=== PATIENT | female | born 1995 | race Caucasian/White ===

== ENCOUNTER → 2016-09-17 | Outpatient (CLI) | payer BC, OTHER ==
--- NOTE | 2016-09-17 11:41 | Diagnostic Imaging Report ---
EXAMINATION: Left breast ultrasound. INDICATION: Fullness in the upper outer quadrant of the left breast. FINDINGS: The upper outer quadrant of the left breast was scanned with no underlying abnormality seen. IMPRESSION: Negative study. A mammogram was not performed at this time due to the young age of the patient. If symptoms persist or are clinically concerning, then a reevaluation exam and getting a mammogram would be recommended. ACR BI-RADS Category 1: Negative. Result letter will be mailed to the patient. Note: At least 10% of breast cancer is not imaged by mammography. Dictated by: Dictated on workstation # [id number]
== END ==
LOC: RAD 09:17
PROVIDERS: ATTEND Family Medicine
DX: N64.89 Other specified disorders of breast (principal)
CPT/HCPCS: 76642

== ENCOUNTER → 2018-08-17 | Outpatient (CLI) | payer BC, OTHER ==
--- NOTE | 2018-08-17 17:02 | Diagnostic Imaging Report ---
PROCEDURE: CT abdomen and pelvis without contrast. TECHNIQUE: Multiple contiguous axial images were obtained through the abdomen and pelvis without the use of intravenous contrast. Auto Exposure Controls were utilized during the CT exam to meet ALARA standards for radiation dose reduction. INDICATION: Right lower quadrant pain with nausea, vomiting and diarrhea. COMPARISON: No prior studies are available for comparison. FINDINGS: The lung bases are clear. The liver and gallbladder are unremarkable. No biliary ductal dilatation is seen. The pancreas and spleen are unremarkable. No adrenal mass is detected. No renal calculi or hydronephrosis is detected. The aorta is non-aneurysmal. Small and large bowel loops are normal in caliber and without evidence of obstruction. The appendix is visualized in the right lower quadrant. The appendix has a normal appearance. No periappendiceal inflammation is seen to suggest acute appendicitis. No free fluid or fluid collection is identified. The bladder and uterus are unremarkable. There are small lymph nodes in the right lower quadrant which can be seen with mesenteric adenitis. IMPRESSION: 1. No CT evidence of acute appendicitis. 2. No evidence of urinary tract calculi or obstruction. 3. Mildly prominent lymph nodes in the right lower quadrant which can be seen with mesenteric adenitis. Results were discussed with Dr. Alli Rios prior to this dictation. Dictated by: Dictated on workstation # [id number]
== END ==
LOC: RAD 16:23
PROVIDERS: ATTEND Nurse Practitioner
DX: J01.90 Acute sinusitis, unspecified (principal); K90.41 Non-celiac gluten sensitivity; H92.01 Otalgia, right ear; R10.31 Right lower quadrant pain; R09.81 Nasal congestion
CPT/HCPCS: 74176

== ENCOUNTER → 2018-08-18 | Outpatient (CLI) | payer BC, OTHER ==
--- NOTE | 2018-08-18 16:29 | Diagnostic Imaging Report ---
PROCEDURE: US Gallbladder. TECHNIQUE: Multiple Real-time grayscale images were obtained over the right upper quadrant in various projections. INDICATION: Nausea and abdominal pain. FINDINGS: The liver parenchyma is homogeneous with normal echotexture. The gallbladder is clear with no stones or wall thickening. The portal vein is patent with hepatopetal flow. The hepatic veins are patent. The gallbladder is clear with no stones or wall thickening. The common duct is not dilated. The pancreas is obscured by bowel gas. The right kidney measures 9 cm in length and appears normal. There is no ascites. IMPRESSION: Negative gallbladder sonogram. Dictated by: Dictated on workstation # [id number]
== END ==
LOC: RAD 15:12
PROVIDERS: ATTEND Surgery
DX: R11.0 Nausea (principal); R10.816 Epigastric abdominal tenderness
CPT/HCPCS: 76705

== ENCOUNTER → 2018-08-20 | Outpatient (CLI) | payer BC, OTHER ==
[~2018-08-20] MED LIST: ACHD5005 PO; CATHETER FLUSH 10 ML SYR IV PRN; DOCU-143 PO
--- NOTE | 2018-08-20 09:35 | Diagnostic Imaging Report ---
Clinical indication: Patient with nausea. Comparison: Gallbladder ultrasound dated 08/18/2018. Procedure: The patient was administered 5.46 millicuries of technetium 99m Choletec. After 60 minutes of the images, one can of Ensure was drink followed by another 60 minutes of imaging. A nuclear medicine hepatobiliary scan with ejection fraction was performed. Findings: There is prompt uptake and excretion of radiotracer by the liver. Activity is visible in the gallbladder by 35 minutes and the small bowel by 65 minutes. Ejection fraction of the gallbladder is calculated at 14% (normal >33%). Impression: Abnormal hepatobiliary scan with low gallbladder ejection fraction of 14%. These findings may be seen with chronic cholecystitis or gallbladder dysmotility. Dictated by: Dictated on workstation # [id number]
== END ==
LOC: CARD 06:33
PROVIDERS: ATTEND Surgery
DX: R11.0 Nausea (principal); R10.816 Epigastric abdominal tenderness
CPT/HCPCS: 78227

== ENCOUNTER 2018-08-23 11:50 | Outpatient (CLI) | payer BC, OTHER ==
[~2018-08-23] VITALS: Ht 167.6 cm; Wt 77.1 kg
[2018-08-24] MEDS ORDERED: DOCU-143 PO (13:12)
[2018-08-24] MEDS ORDERED: ACHD5005 PO (13:12)
== END 2018-08-23 14:06 | disposition home or self-care (01) ==
LOC: PREOP 11:50
PROVIDERS: ATTEND Surgery
DX: Z01.818 Encounter for other preprocedural examination (principal)

== ENCOUNTER 2018-08-24 10:22 | Day surgery (SDC) | payer BC, OTHER ==
[~2018-08-24] VITALS: Ht 167.6 cm; Wt 77.1 kg
[2018-08-24] VITALS (11 sets, daily range): BP systolic 110–128; BP diastolic 74–84
[2018-08-24] MEDS: LACTATED RINGERS 1,000 ML IV PRN ×2 (09:55→12:45)
--- OUTSIDE RECORDS SUMMARY | 2018-08-24 10:25 | XMS REPORT | Clinical Summary ---
Author Author [facility] Organization [facility] Address Unknown Phone Unavailable Care Team Providers Care Test [facility] Administrator Name Role Phone PCP Unavailable Allergies No Known Allergies Current Medications Prescription Sig. Disp. Refills Start End Date Status Date norgestimate-ethinyl Take 1 tablet by mouth Active estradiol (ORTHO daily. TRI-CYCLEN) 0.18/0.215/0.25 mg-35 mcg (28) tablet fluticasone (FLONASE) 50 Use 2 sprays in each 1 Bottle 0 11/02/19 Active mcg/actuation nasal nostril daily. 16 sprayIndications: Seasonal allergies Active Problems No known active problems Social History Tobacco Use Types Packs/Day Years Used Date Never Smoker Alcohol Use Drinks/Week oz/Week Comments No 0 Standard 0.0 drinks or equivalent Sex Assigned at Date Recorded Not on file Last Filed Vital Signs Vital Sign Reading Time Taken Blood Pressure 132/90 11/02/2015 5:22 PM CDT Pulse 90 11/02/2015 5:22 PM CDT Temperature 36.9 C (98.4 F) 11/02/2015 5:22 PM CDT Respiratory Rate 12 11/02/2015 5:22 PM CDT Oxygen Saturation 99% 11/02/2015 5:22 PM CDT Inhaled Oxygen - - Concentration Weight - - Height - - Body Mass Index - - Plan of Treatment Health Maintenance Due Date Last Done Comments Td # 1994 HPV Vaccine (1 - Female 2005 3-dose series) Cervical Cancer Screening 08/14/2015 via Pap Smear Influenza Vaccine (Season 02/25/2019 Ended) Results Not on filefrom Last 3 Months
--- OUTSIDE RECORDS SUMMARY | 2018-08-24 10:26 | XMS REPORT | Continuity of Care Document ---
Author Organization Unknown Address Unknown Allergies Active Description Code Type Severity Reaction Onset Reported/Identified Relationship to Patient Clinical Status Yes No Known Drug Allergies [id number] Drug Allergy Unknown N/A 08/20/2018 Medications There is no data. Problems Date Dx Coded Attending Type Code Diagnosis Diagnosed By 06/25/2015 COSENS DO, EVY L Ot R10.11 06/25/2015 COSENS DO, EVY L Ot R10.13 02/28/2016 COSENS DO, EVY L Ot R10.11 RIGHT UPPER QUADRANT PAIN 02/28/2016 COSENS DO, EVY L Ot R10.13 EPIGASTRIC PAIN 09/18/2016 GIANNDER DO, SUSAN S Ot N64.89 OTHER SPECIFIED DISORDERS OF BREAST 09/26/2016 ORENDER DO, SUSAN S Ot N64.89 OTHER SPECIFIED DISORDERS OF BREAST 09/26/2016 ORENDER DO, SUSAN S Ot N64.89 OTHER SPECIFIED DISORDERS OF BREAST 09/30/2016 ORENDER DO, SUSAN S Ot N64.89 OTHER SPECIFIED DISORDERS OF BREAST 08/17/2018 ORENDER DO, SUSAN S Ot N64.89 OTHER SPECIFIED DISORDERS OF BREAST 08/18/2018 NWAGWU, ISIDORE O [employer] Ot H92.01 OTALGIA, RIGHT EAR 08/18/2018 NWAGWU, ISIDORE O [employer] Ot J01.90 ACUTE SINUSITIS, UNSPECIFIED 08/18/2018 NWAGWU, ISIDORE O [employer] Ot K90.41 NON-CELIAC GLUTEN SENSITIVITY 08/18/2018 NWAGWU, ISIDORE O [employer] Ot R09.81 NASAL CONGESTION 08/18/2018 NWAGWU, ISIDORE O [employer] Ot R10.31 RIGHT LOWER QUADRANT PAIN 08/18/2018 NWAGWU, ISIDORE O [employer] Ot H92.01 OTALGIA, RIGHT EAR 08/18/2018 NWAGWU, ISIDORE O [employer] Ot J01.90 ACUTE SINUSITIS, UNSPECIFIED 08/18/2018 NWAGWU, ISIDORE O [employer] Ot K90.41 NON-CELIAC GLUTEN SENSITIVITY 08/18/2018 NWAGWU, ISIDORE O [employer] Ot R09.81 NASAL CONGESTION 08/18/2018 NWAGWU, ISIDORE O [employer] Ot R10.31 RIGHT LOWER QUADRANT PAIN 08/18/2018 NWAGWU, ISIDORE O [employer] Ot H92.01 OTALGIA, RIGHT EAR 08/18/2018 NWAGWU, ISIDORE O [employer] Ot J01.90 ACUTE SINUSITIS, UNSPECIFIED 08/18/2018 NWAGWU, ISIDORE O [employer] Ot K90.41 NON-CELIAC GLUTEN SENSITIVITY 08/18/2018 NWAGWU, ISIDORE O [employer] Ot R09.81 NASAL CONGESTION 08/18/2018 NWAGWU, ISIDORE O [employer] Ot R10.31 RIGHT LOWER QUADRANT PAIN 08/18/2018 NWAGWU, ISIDORE O [employer] Ot H92.01 OTALGIA, RIGHT EAR 08/18/2018 NWAGWU, ISIDORE O [employer] Ot J01.90 ACUTE SINUSITIS, UNSPECIFIED 08/18/2018 NWAGWU, ISIDORE O [employer] Ot K90.41 NON-CELIAC GLUTEN SENSITIVITY 08/18/2018 NWAGWU, ISIDORE O [employer] Ot R09.81 NASAL CONGESTION 08/18/2018 NWAGWU, ISIDORE O [employer] Ot R10.31 RIGHT LOWER QUADRANT PAIN Procedures There is no data. Results There is no data. Encounters ACCT No. Visit Date/Time Discharge Status Pt. Type Provider Facility Loc./Unit Complaint [id number] 08/20/2018 06:33:00 08/20/2018 23:59:59 [facility] Outpatient BOYLE LISANDRO BERGERON Via [facility] CARD NAUSEA, EPIGASTRIC ABDOMINAL TENDERNESS [id number] 08/18/2018 15:12:00 08/18/2018 23:59:[address] [facility] Outpatient BOYLE LISANDRO BERGERON [facility] RAD NAUSEA [id number] 08/17/2018 16:23:00 08/17/2018 23:59:59 [facility] Outpatient ADOLPH RHODES APRN [facility] RAD RLQ PAIN [id number] 09/17/2016 09:17:00 09/17/2016 23:59:59 [facility] Outpatient SUSAN TORRES DO [facility] RAD LT UPPER OUTER QUAD FULLNESS [id number] 06/01/2015 07:55:00 06/01/2015 23:59:59 [facility] Outpatient EVY CEJA DO [facility] RAD ABDOMINAL PAIN [id number] 03/26/2013 14:22:00 03/26/2013 23:59:59 [facility] Outpatient
[2018-08-24] MEDS ORDERED: LIDOCAINE PF 2% 5 ML (XYLOCAINE) VIAL ONE (10:51)
[2018-08-24] MEDS ORDERED: proPOfol 200 MG/20 ML (DIPRIVAN) VIAL IV ONE (10:51)
[2018-08-24] MEDS ORDERED: fentaNYL INJECTION 100 MCG/2 ML AMP ONE ×3 (10:51→13:28)
[2018-08-24] MEDS ORDERED: ROCURONIUM 10 MG/ML 5 ML SYRINGE IV ONE (10:51)
[2018-08-24] MEDS ORDERED: MIDAZOLAM 2 MG/2 ML (VERSED) VIAL ONE (10:52)
--- NOTE | 2018-08-24 10:57 | Progress Note-Pre Operative ---
Pre-Operative Progress Note H&P Reviewed The H&P was reviewed, patient examined and no changes noted. Date Seen by Provider: Aug 24, 2018 Time Seen by Provider: 10:56 Date H&P Reviewed: Aug 24, 2018 Time H&P Reviewed: 10:56 Pre-Operative Diagnosis: ruq abd pain, biliary dyskinesia LISANDRO BOYLE DO Aug 24, 2018 10:57
[2018-08-24] MEDS ORDERED: ceFAZolin INJECTION 1,000 MG in WATER (STERILE) FOR INJECTION 10 ML IV ONE (11:00)
[2018-08-24] MEDS ORDERED: LIDOCAINE 1% INJ 20 ML 20 ML VIAL ONE (11:33)
[2018-08-24] MEDS ORDERED: BUP/EPI 0.5% 1:200,000 (SENSORCAINE) 30 ML VIAL ONE (11:33)
[2018-08-24] MEDS ORDERED: IOPAMIDOL 61% 30 ML (ISOVUE 300) VIAL IV ONE (11:33)
[2018-08-24] MEDS ORDERED: ONDANSETRON 4 MG/2 ML (SDV) Z0FRAN ONE (12:18)
[2018-08-24] MEDS ORDERED: DEXAMETHASONE 10 MG/ML (DECADRON) 1 ML VIAL ONE (12:18)
[2018-08-24] MEDS ORDERED: SEVOFLURANE (ULTANE) 15 ML INHAL SOLN ONE ×6 (12:26→13:21)
[2018-08-24] MEDS ORDERED: GLYCOPYRROLATE 0.2 MG/ML (ROBINUL) 2 ML VIAL ONE (13:00)
[2018-08-24] MEDS ORDERED: NEOSTIGMINE 1 MG/ML 5 ML SYRINGE ONE (13:00)
--- NOTE | 2018-08-24 13:11 | Progress Note-Post Operative ---
Post-Operative Progess Note Surgeon (s)/Aviation Operations Specialist (s) Surgeon LISANDRO BOYLE DO Aviation Operations Specialist: Dr. Valdez Pre-Operative Diagnosis ruq abd pain, biliary dyskinesia Post-Operative Diagnosis same Procedure & Operative Findings Date of Procedure 08/24/18 Procedure Performed/Findings lap herman attempted ioc Anesthesia Type gen Estimated Blood Loss Estimated blood loss (mL): min Specimens/Packing Specimens Removed gallbladder LISANDRO BOYLE DO Aug 24, 2018 13:11
[2018-08-24] MEDS ORDERED: DOCU-143 PO (13:12)
[2018-08-24] MEDS ORDERED: ACHD5005 PO (13:12)
--- NOTE | 2018-08-24 13:14 | Discharge Inst-Simple/Standard ---
Discharge Inst-Standard Discharge Medications New, Converted or Re-Newed RX: RX on Chart Patient Instructions/Follow Up Plan of Care/Instructions/FU: 2 weeks Gabriel Activity as Tolerated: No Discharge Diet: Regular Diet Other Inst to Patient Follow up Appt: Make appointment for 2 weeks. Instructions: No lifting greater than 10 pounds. No strenuous activity. May shower in 24 hours, no tub bath or soaking. Use incentive spirometer at home as directed. No Smoking Skin/Wound Care: You have special glue over incisions it will fall off on its own. Symptoms to Report: Appetite Changes, Extremity Discoloration, Numbness/Tingling, Swelling Increased , Bleeding Excessive, Eyesight Changes, Pain Increased, Urine Color Change, Constipation(Persistent), Fever over 101 degree F, Pain/Pressure in chest, Urinating Difficulty, Cough Up/Vomit Blood, Heart Beat Irreg/Pounding, Pain/ Pressure in jaw, Vaginal Bleeding Increase, Cramps in feet or legs, Lightheadedness, Pain/Pressure in shoulder, Diarrhea(Persistent), Memory Changes Suddenly, Questions/Concerns, Weight gain consecutive days, Dizziness/ Fainting, Nausea/Vomiting, Shortness of Breath, Weight gain over 2 pounds. If eyes or skin turn yellow notify physician. If questions or concerns contact your physician Or seek help at emergency department. LISANDRO BOYLE DO Aug 24, 2018 13:14
[2018-08-24] MEDS ORDERED: KETOROLAC 30 MG/ML VIAL ONE (13:28)
[2018-08-24] MEDS ORDERED: ONDANSETRON 4 MG/2 ML (SDV) Z0FRAN IVP PRN (13:30)
[2018-08-24] MEDS ORDERED: PROMETHAZINE INJ 25 MG/ML (PHENERGAN) AMP IVP ONE (13:30)
[2018-08-24] MEDS ORDERED: MEPERIDINE (DEMEROL) INJ 50 MG/ML IVP ONE (13:30)
[2018-08-24] MEDS ORDERED: KETOROLAC 30 MG/ML VIAL IVP ONE (13:30)
[2018-08-24] MEDS ORDERED: fentaNYL INJECTION 100 MCG/2 ML AMP IVP ONE (13:45)
--- NOTE | 2018-08-24 14:03 | Anesthesia-General Post-Op ---
General Patient Condition Mental Status/LOC: Same as Preop Cardiovascular: Satisfactory Nausea/Vomiting: Absent Respiratory: Satisfactory Pain: Controlled Complications: Absent Post Op Complications Complications None Follow Up Care/Instructions Patient Instructions None needed. Anesthesia/Patient Condition Patient Condition Patient is doing well, no complaints, stable vital signs, no apparent adverse anesthesia problems. No complications reported per nursing. ALYSSIA HOPPER CRNA Aug 24, 2018 14:03
[2018-08-24] MEDS ORDERED: HYDROcodone/APAP 5 MG/325 MG (LORTAB) TAB ONE (14:54)
[2018-08-24] MEDS ORDERED: HYDROcodone/APAP 5 MG/325 MG (LORTAB) TAB PO ONE (15:00)
--- NOTE | 2018-08-24 15:01 | NUR ---
HAS HAD CRACKERS AND PO FLUIDS. LORTAB 5/325 MG, ONE TAB, GIVEN PO FOR C/O ABD SURGICAL SITE PAIN RATED 5.
--- NOTE | 2018-08-24 15:45 | NUR ---
RESTING QUIETLY. STATES PAIN LEVEL IS DECREASING, RATES 3.
--- NOTE | 2018-08-24 16:25 | NUR ---
PAIN LEVEL RATED 2-3. UP IN ROOM TO DRESS FOR DISMISSAL, TOLERATED WELL. SURGICAL SKIN ADHESIVE REMAINS INTACT TO X4 LAP ABD SURGICAL SITES.
--- NOTE | 2018-08-24 22:27 | OPERATIVE REPORT ---
DATE OF SERVICE: 08/24/2018 PREOPERATIVE DIAGNOSIS: Right upper quadrant abdominal pain, biliary dyskinesia. POSTOPERATIVE DIAGNOSIS: Right upper quadrant abdominal pain, biliary dyskinesia. PROCEDURE: Laparoscopic cholecystectomy with attempted intraoperative cholangiogram. SURGEON: Lisandro Rios DO. NUCLEAR AUXILIARY OPERATOR: Dr. Valdez, assisted in retraction, dissection and closure. ANESTHESIA: General. ESTIMATED BLOOD LOSS: Minimal. COMPLICATIONS: None. INDICATIONS: The patient is a 23-year-old female with right upper quadrant abdominal pain, nausea and vomiting. She had workup consistent with biliary dyskinesia. She understands risks and benefits of procedure and wished to proceed with procedure. Consent was signed in the chart. DESCRIPTION OF PROCEDURE: The patient was taken to the operating suite, prepped and draped in sterile fashion. A timeout was performed. A midline incision was made just above the umbilicus through a 12 mm trocar site. Cautery was used to dissect down to the fascia, which was then scored, grasped, elevated. The abdomen was then entered. A balloon trocar was then inserted and pneumoperitoneum was achieved. Under direct visualization of the laparoscope, a 5 mm trocar was placed in the subxiphoid region and two 5 mm trocars were placed in the right upper quadrant. Gallbladder was grasped, elevated. There were adhesions attached to it and also edema around the gallbladder. The adhesions were then taken down. The cystic duct and cystic artery were then dissected around. Clips were placed on proximal and distal portion of the cystic artery and a clip was placed on the distal portion of the cystic duct. The cystic duct was very small. The duct was then partially transected. Arrow catheter was attempted to be inserted; however, it was very small. We were able to get the tip and tried to still perform cholangiogram by using a clip to hold it in place that was unable to be successful. Cholangiogram was then performed. Clips were placed on the proximal portion of the cystic duct, and the duct and the artery were then completely transected. Hook cautery used to dissect the gallbladder from gallbladder fossa achieving hemostasis. Once removed, it was placed in an Endobag and removed through 12 mm trocar site. The abdomen was then irrigated and suctioned with copious amounts of irrigation. Hemostasis was achieved. The abdomen was desufflated, the trocars were removed. The fascia was then closed in a [id number] fashion with an 0 Vicryl suture. The skin was then closed using 4-0 Monocryl in a subcuticular fashion. The area was then washed and dried and Skin Affix was placed over the incisions. The patient tolerated the procedure well without any complications. She was taken to recovery room in stable condition. Job ID: [id number] DocumentID: [id number] Dictated Date: 08/24/2018 13:17:20 Hide Paster Date: 08/24/2018 22:26:45 Dictated By: LISANDRO RIOS DO
== END 2018-08-24 16:25 | disposition home or self-care (01) ==
LOC: SDC 10:22
PROVIDERS: ATTEND Surgery
DX: K81.1 Chronic cholecystitis (principal)
CPT/HCPCS: 84703; 87081; 94664

== ENCOUNTER 2020-07-13 07:00 | Inpatient (IN) | payer BC, OTHER ==
[~2020-07-13] VITALS: Ht 170.2 cm; Wt 94.8 kg
[2020-07-13] VITALS (59 sets, daily range): BP systolic 91–169; BP diastolic 46–102
[~2020-07-13 07:00] MED LIST changes: -CATHETER FLUSH 10 ML SYR IV PRN
[2020-07-13] MEDS ORDERED: D5 LR IV SOLUTION 1,000 ML IV ONE (07:37)
[2020-07-13] MEDS ORDERED: OXYTOCIN PRE-MIX DRIP 500 ML IV ONE (07:37)
--- NOTE | 2020-07-13 07:43 | History & Physical ---
History and Physical Date Seen by Provider: Jul 13, 2020 Time Seen by Provider: 07:41 This patient is a 24-year-old 1 white female presenting now at 39 weeks gestation for labor induction. She has had no problems with this . She denies rupture membranes or bleeding. She only feels an occasional contraction at this point. Her GBS culture after 35 weeks gestation was negative. Allergies are to gluten Medications are vitamins Medical social and surgical history is all per the antepartum record HEENT exam is normal Neck is supple no lymphadenopathy no thyromegaly Abdomen is gravid soft nontender nondistended Extremities show no clubbing or cyanosis. There is no Homans' sign. Pelvic exam shows a cervix almost 2 cm dilated 70% effaced mid to slightly anterior very soft vertex presentation at -1 station Amniotomy was performed with release of small amount of clear fluid Assessment and plan 39-week gestation in an uncomplicated admitted now for induction of labor. We anticipate a vaginal delivery but would be prepared for if needed 39 weeks admitted for induction of labor Allergies and Home Medications Allergies Coded Allergies: No Known Drug Allergies (Unverified , 08/20/18) Home Medications Docusate Sodium 100 Mg Capsule, 100 MG PO DAILY Prescribed by: LISANDRO BOYLE on 08/24/18 1312 Hydrocodone Bit/Acetaminophen 1 Tab Tab, 1-2 TAB PO Q6H PRN for PAIN-MODERATE Prescribed by: LISANDRO BOYLE on 08/24/18 1312 Patient Home Medication List Home Medication List Reviewed: Yes MARIOLA ANAYA MD Jul 13, 2020 07:43
[2020-07-13] MEDS ORDERED: OXYTOCIN PRE-MIX DRIP 500 ML IV SCH ×2 (07:45→20:15)
[2020-07-13] MEDS: D5 LR IV SOLUTION 1,000 ML IV SCH ×2 (07:51→13:34)
[2020-07-13] MEDS ORDERED: PREN1TAB79 PO (07:57)
[2020-07-13 07:58] LABS: BASOPHILS % (AUTO) 0 % (0-10); EOSINOPHILS % (AUTO) 0 % (0-10); HEMATOCRIT 37 % (35-52); HEMOGLOBIN 12.5 g/dL (11.5-16.0); LYMPHOCYTES # (AUTO) 1.6 10^3/uL (1.0-4.0); LYMPHOCYTES % (AUTO) 19 % (12-44); MEAN CORPUSCULAR HEMOGLOBIN 31 pg (25-34); MEAN CORPUSCULAR HGB CONC 34 g/dL (32-36); MEAN CORPUSCULAR VOLUME 90 fL (80-99); MEAN PLATELET VOLUME 11.1 fL (9.0-12.2); MONOCYTES # (AUTO) 0.4 10^3/uL (0.0-1.0); MONOCYTES % (AUTO) 5 % (0-12); NEUTROPHILS # (AUTO) 6.5 10^3/uL (1.8-7.8); NEUTROPHILS % (AUTO) 75 % (42-75); PLATELET COUNT 213 10^3/uL (130-400); WHITE BLOOD COUNT 8.6 10^3/uL (4.3-11.0)
[2020-07-13 10:01] LABS: URINE CREATININE FOR RATIO 51 MG/DL (30-125); URINE PROTEIN FOR RATIO ONLY < 6 MG/DL (6-12)
[2020-07-13] MEDS ORDERED: fentaNYL 2 mcg/ml BUPIVA 0.125 100 ML ONE (13:22)
[2020-07-13] MEDS ORDERED: BUPIVACAINE 0.25% 30 ML (SENSORCAINE) VIAL ONE (13:45)
[2020-07-13] MEDS ORDERED: fentaNYL INJ 100 MCG/2 ML AMP ONE ×2 (13:46→18:55)
[2020-07-13] MEDS ORDERED: fentaNYL 2 mcg/ml BUPIVA 0.125 100 ML IV SCH (14:00)
[2020-07-13] MEDS ORDERED: LACTATED RINGERS 1,000 ML IV ONE (14:00)
[2020-07-13] MEDS ORDERED: diphenhydrAMINE 50 MG/ML INJ (BENADRYL) IV PRN (14:00)
[2020-07-13] MEDS ORDERED: CATHETER FLUSH 10 ML SYR IV PRN (14:00)
[2020-07-13] MEDS ORDERED: ONDANSETRON 4 MG/2 ML (SDV) Z0FRAN IV PRN (14:00)
[2020-07-13] MEDS ORDERED: NALOXONE 0.4 MG/ML 1 ML (NARCAN) VIAL IV PRN (14:00)
[2020-07-13] MEDS ORDERED: METOCLOPRAMIDE INJ 10 MG/2 ML (REGLAN) ONE (18:38)
[2020-07-13] MEDS ORDERED: metroNIDAZOLE 500MG/100ML IVPB 100 ML ONE (18:38)
[2020-07-13] MEDS ORDERED: ceFAZolin 2 GM IV Premixed 50 ML ONE (18:39)
[2020-07-13] MEDS ORDERED: FAMOTIDINE 20MG/2ML IV (PEPCID) ONE (18:39)
[2020-07-13] MEDS ORDERED: CITRIC ACID/SOB CIT (BICITRA) 30 ML UDC ONE (18:39)
[2020-07-13] MEDS ORDERED: ceFAZolin 2 GM IV Premixed 50 ML IV ONE (18:45)
[2020-07-13] MEDS ORDERED: metroNIDAZOLE 500MG/100ML IVPB 100 ML IV ONE (18:45)
[2020-07-13] MEDS ORDERED: TERBUTALINE INJ 1 MG/ML (BRETHINE) AMP ONE (18:46)
[2020-07-13] MEDS ORDERED: DOCU-143 PO (18:55)
[2020-07-13] MEDS ORDERED: OXYC1TAB12 PO (18:55)
[2020-07-13] MEDS ORDERED: IBUP-1780 PO (18:55)
--- NOTE | 2020-07-13 18:56 | Discharge Inst-Surgical ---
Discharge Inst-Surgical Depart Medication/Instructions New, Converted or Re-Newed RX: RX on Chart Consults/Follow Up Patient Instructions: As directed Orders & Referrals Follow Up Appt: RTC Next Thursday, July 20, 2020 at 9:30 AM for incision check. Call to make follow up appt. for patient in 4 weeks. Wound Care: Remove rakan, apply benzoin and steri strips. Activity Per routine post instructions. Please call in RX to patient pharmacy. Diet as tolerated Patient may shower or tub bathe as desired. Continue home meds Activity Activity as Tolerated: No Diet Discharge Diet: No Restrictions MARIOLA ANAYA MD Jul 13, 2020 18:56
[2020-07-13] MEDS ORDERED: FAMOTIDINE 20MG/2ML IV (PEPCID) IV ONE (19:00)
[2020-07-13] MEDS ORDERED: METOCLOPRAMIDE INJ 10 MG/2 ML (REGLAN) IV ONE (19:00)
[2020-07-13] MEDS ORDERED: LACTATED RINGERS 1,000 ML IV PRN (19:00)
[2020-07-13] MEDS ORDERED: CITRIC ACID/SOB CIT (BICITRA) 30 ML UDC PO ONE (19:00)
[2020-07-13] MEDS ORDERED: TERBUTALINE INJ 1 MG/ML (BRETHINE) AMP SC ONE (19:15)
[2020-07-13] MEDS ORDERED: KETOROLAC 30 MG/ML VIAL ONE (19:43)
[2020-07-13] MEDS ORDERED: PHENYLEPHRINE 100 MCG/ML 10 ML (ANESTHESIA) SYR ONE (19:43)
[2020-07-13] MEDS ORDERED: ONDANSETRON 4 MG/2 ML (SDV) Z0FRAN ONE (19:57)
[2020-07-13] MEDS ORDERED: fentaNYL INJ 100 MCG/2 ML AMP IVP PRN (20:15)
[2020-07-13] MEDS ORDERED: KETOROLAC 30 MG/ML VIAL IVP SCH (20:15)
[2020-07-13] MEDS ORDERED: TETANUS,DIPTH,PERTUSS P/F (BOOSTRIX) 0.5 ML VIAL IM ONE (20:15)
[2020-07-13] MEDS ORDERED: ONDANSETRON 4 MG/2 ML (SDV) Z0FRAN IVP PRN (20:15)
[2020-07-13] MEDS ORDERED: MEASLES,MUMPS,RUBELLA 1 EA INJ SC ONE (20:15)
[2020-07-13] MEDS ORDERED: D5 LR IV SOLUTION 1,000 ML IV SCH (20:15)
[2020-07-13] MEDS ORDERED: DOCUSATE SODIUM 100 MG (COLACE) CAP PO SCH (21:00)
[2020-07-13] MEDS: DOCUSATE SODIUM 100 MG (COLACE) CAP PO SCH (23:42)
[2020-07-13] MEDS: oxyCODONE/APAP 10/325MG (PERCOCET 10) TABLET PO PRN (23:43)
--- NOTE | 2020-07-13 23:49 | OPERATIVE REPORT ---
DATE OF SERVICE: 07/13/2020 PREOPERATIVE DIAGNOSES: Term at 39+ weeks' gestation in labor with failure to progress. POSTOPERATIVE DIAGNOSES: Term at 39+ weeks' gestation in labor with failure to progress with CPD. OPERATIVE PROCEDURE: Primary low transverse delivery of a viable female with Apgars of 8 and 9 at 1 and 5 minutes respectively, weight of 6 pounds 13 ounces. Cord blood pH of 7.24 and a time of 1946. OPERATIVE DESCRIPTION: With the patient in supine position under satisfactory spinal analgesia, the patient was prepped and draped in the usual fashion for abdominal surgery. Banegas catheter had been placed in the urinary bladder during labor that was left to dependent drainage. A Pfannenstiel incision was made through the skin with scalpel, the patient's abdomen entered in the usual manner. Bladder retractor placed in position, clean scalpel used to make a 4 cm arthrotomy incision transversely across the lower uterine segment that was extended by blunt dissection as well. Wheeler forceps were applied to facilitate the delivery of a vigorous viable female infant. The infant was in a right occiput transverse right asynclitic position and the head was well above the pubic bone. With the Simpsons on and correctly placed, gentle traction effected delivery without excessive abdominal pressure to extract the baby. The was bulb suctioned on delivery of the head and again on completion of delivery. Umbilical cord was doubly clamped and cut, and the passed to the pediatric nurse in attendance for delivery. Cord bloods were obtained. The placenta delivered spontaneously Swan. It was normal with a 3-vessel cord. The uterus was exteriorized and interior wiped clean with a wet laparotomy sponge. Uterine incision was then closed with running locked suture of 2-0 Vicryl. Hemostasis was complete. However, the uterus was exceedingly boggy, modified B-Mercado suture was placed using 2-0 chromic sutures to preclude significant bleeding from uterine atony. With that done, the uterus was now returned to abdominal cavity. All blood clot and debris removed from the abdominal cavity. With sponge and needle counts correct and hemostasis assured, the anterior parietal peritoneum was closed with running suture of 2-0 Vicryl. Rectus muscles were closed with that suture as well. The rectus fascia was closed with 2-0 Vicryl, subcutaneous tissue with 2-0 Vicryl and the skin was stapled. Sponge and needle counts were correct on completion of procedure. Estimated blood loss was around 200 mL. The patient tolerated the procedure well and was transferred to recovery room in stable condition. The had been taken to the bedside and remained with the mom in the OR in recovery. Job ID: [id number] DocumentID: [id number] Dictated Date: 07/13/2020 20:10:07 Healthcare Management Date: 07/13/2020 23:49:35 Dictated By: MARIOLA ANAYA MD
[2020-07-14 04:20] VITALS: BP 113/57
--- NOTE | 2020-07-14 09:10 | Progress Note ---
Standard Progress Note Progress Notes/Assess & Plan Date Seen by a Provider: Jul 14, 2020 Time Seen by a Provider: 09:09 Progress/Assessment & Plan This patient is without complaint. She is ambulating, voiding, tolerating oral intake well and has good pain control. Patient denies chest pain, denies shortness of breath, denies nausea vomiting, and denies headache. Vital Signs 07/14/20 04:20 Temp 36.3 Pulse 97 Resp 20 B/P (MAP) 113/57 (75) Pulse Ox 98 O2 Delivery Room Air Vital signs are stable. Patient is afebrile. The abdomen is benign. The surgical incision is clean dry intact. Fundus is firm below the umbilicus and nontender. Extremities show no clubbing or cyanosis. There is no Homans' sign. Assessment and plan postoperative day #1 status post primary delivery at 39+ weeks gestation patient is doing well will have routine convalescent care today and likely discharge home tomorrow Final Diagnosis 39-week primary delivery MARIOLA ANAYA MD Jul 14, 2020 09:10
[2020-07-14] MEDS ORDERED: IBUPROFEN 800 MG (MOTRIN) TAB PO ONE ×2 (09:48→16:06)
[2020-07-14 09:56] VITALS: BP 123/76
[2020-07-14] MEDS: DOCUSATE SODIUM 100 MG (COLACE) CAP PO SCH ×2 (09:58→22:19)
[2020-07-14] MEDS: oxyCODONE/APAP 10/325MG (PERCOCET 10) TABLET PO PRN ×3 (09:58→22:19)
[2020-07-14] MEDS: IBUPROFEN 800 MG (MOTRIN) TAB PO SCH ×3 (09:58→22:18)
[2020-07-14 13:00] VITALS: BP 123/67
[2020-07-14 16:54] VITALS: BP 117/70
[2020-07-14 22:18] VITALS: BP 118/68
[2020-07-15 03:41] VITALS: BP 124/75
[2020-07-15] MEDS: IBUPROFEN 800 MG (MOTRIN) TAB PO SCH (03:42)
[2020-07-15] MEDS: oxyCODONE/APAP 10/325MG (PERCOCET 10) TABLET PO PRN ×2 (03:44→08:04)
[2020-07-15 07:20] VITALS: BP 118/72
[2020-07-15] MEDS: DOCUSATE SODIUM 100 MG (COLACE) CAP PO SCH (08:04)
--- NOTE | 2020-07-15 12:49 | Anesthesia-Regional Post-Op ---
Regional Significant Intra-Op Events Notes post date entry from 07/14/20 at 1034 Patient Condition Mental Status: Alert, Oriented x3 Circulation: Same as Pre-Op Headache: Absent Sensation: Full Recovery Motor Block: Absent Post Op Complications Complications None Follow Up Care/Instructions Patient Instructions None needed. Anesthesia/Patient Condition Patient is doing well, no complaints, stable vital signs, no apparent adverse anesthesia problems. No complications reported per nursing. JAIR SHEEHAN CRNA Jul 15, 2020 12:49
== END 2020-07-15 13:02 | disposition home or self-care (01) | DRG 788 ==
LOC: LDRP 07:01 → WS 22:33
PROVIDERS: ADMIT Obstetrics & Gynecology; ATTEND Obstetrics & Gynecology
PROC: 10D00Z1 Extraction of Products of Conception, Low, Open Approach (ICD-10-PCS; principal; 2020-07-13 19:19)
DX: O62.0 Primary inadequate contractions (principal); O33.9 Maternal care for disproportion, unspecified; Z37.0 Single live birth; Z3A.39 39 weeks gestation of pregnancy
CPT/HCPCS: 36415; 82570; 84156; 85025; 86850; 86900; 86901